=== PATIENT | male | born 1960 | race Caucasian/White ===

== ENCOUNTER 2023-10-27 13:30 | Outpatient (AMB) | payer OTHER, SELFPAY ==
--- NOTE | 2023-10-27 13:35 | A.OFFPC_ITS ---
Vital Signs 10/27/23 13:36 10/27/23 14:12 Height 5 ft 6.93 in Weight 204 lb 0.4 oz BMI 32.0 BP 142/90 H 138/70 Blood Pressure Location Lt brachial Lt brachial Position Sitting Sitting Pulse 94 Pulse Source Pulse Oximeter Pulse Oximetry (%) 98 Oxygen Delivery Method Room Air Intake Visit Reasons: [employer]- Establish Care Intake Note: Patient is a new patient here to establish care [employer] Supervisor Required: No Allergies No Known Allergies Allergy (Verified 10/27/23 13:36) Medication List - Last Reconciled 10/27/23 by Allyn Pierre MD cholecalciferol (vitamin D3) 50 mcg PO DAILY lisinopril 5 mg PO DAILY metformin ER 500 mg PO DAILY multivitamin 1 tab PO DAILY turmeric mg PO Tobacco use date assessed: 10/27/23 Fall risk assessment: No Falls in past year Last assessed Fall Risk: 10/27/23 Dental Screening Dental Screen Date: 10/27/23 Did you have a dental visit in the last 12 months?: Yes Did you have a dental problem in the last 6 months where you did not have access to dental care?: No Was dental information given to patient?: Patient has dentist HPI [employer]- Establish Care HPI Details 63-year-old obese male with hypertension and chronic kidney disease and diabetes mellitus controlled. This is the 1st time I am seeing the patient [facility] Medical History (Updated 10/27/23 @ 14:09 by Allyn Pierre MD) Impaired glucose tolerance Surgical History (Updated 10/22/23 @ 20:45 by Allyn Pierre MD) Hx of tonsillectomy Family History (Updated 10/27/23 @ 14:25 by Allyn Pierre MD) Maternal Grandfather Heart attack Maternal Uncle Heart attack Social History (Updated 10/27/23 @ 14:25 by Allyn Pierre MD) Housing: House Alcohol intake: current Comment: once a week 3 drink Patient Tobacco Use Status: Never used Tobacco service: No Current occupational status: employed Cognitive needs: No Hearing needs: No Vision needs: No Questionnaire PHQ-9 Over the last 2 weeks, how often have you been bothered by any of the following problems? 1. Little interest or pleasure in doing things: not at all 2. Feeling down, depressed, or hopeless: not at all 3. Trouble falling or staying asleep, or sleeping too much: not at all 4. Feeling tired or having little energy: not at all 5. Poor appetite or overeating: not at all 6. Feeling bad about yourself - or that you are a failure or have let yourself or your family down: not at all 7. Trouble concentrating on things, such as reading the newspaper or watching television: not at all 8. Moving or speaking so slowly that other people could have noticed. Or the opposite - being so fidgety or restless that you have been moving around a lot more than usual: not at all 9. Thoughts that you would be better off or of hurting yourself in some way: not at all Total score: 0 Depression Screening Interpretation: Negative Depression Screening Done: Yes Source: Developed by Drs. Fredrick Barlow, Ale Trammell, Tyler Mancilla and colleagues, with an educational devorah from [employer]. Thrive Questionnaire Date Thrive assessed: 10/27/23 I am a: Patient What is your living situation today?: I have a steady place to live Within the past 12 months, did the food you bought not last and you didn't have the money to get more?: Never true Within the past 12 months, did you worry whether your food would run out before you got money to buy more?: Never true Do you have trouble paying for medicines?: No Do you have trouble getting transportation to medical appointments?: No Do you have trouble paying your heating and electricity bill?: No Do you have trouble taking care of your child, family member or friend?: No Do you have trouble with day-to-day activities such as bathing, preparing meals, shopping, managing finances, etc.?: No Are you currently unemployed and looking for a job?: No Are you interested in more education?: No Please select the resources that you would like help with: None Currently or been in a relationship where the following occur: no concerns reported THRIVE Score: 0 AUDIT C Alcohol Use Questionnaire (AUDIT-C) 1. How often do you have a drink containing alcohol?: Monthly or less 2. How many drinks containing alcohol do you have on a typical day when you are drinking?: 1 or 2 3. How often do you have six or more drinks on one occasion?: Never Total Score: 1 GABE-7 AMB Questionnaire GABE-7 Date GABE - 7 assessed: 10/27/23 Feeling nervous, anxious, or on edge: 0 = Not at all Not being able to stop or control worryin = Not at all Worrying too much about different things: 0 = Not at all Trouble relaxin = Not at all Being so restless that it is hard to sit still: 0 = Not at all Becoming easily annoyed or irritable: 0 = Not at all Feeling afraid as if something awful might happen: 0 = Not at all Total GABE-7 score (0-4 normal; 5-9 mild; 10-14 moderate; 15-21 severe): 0 Source: Developed by Drs. Fredrick Barlow, Ale Trammell, Tyler Mancilla and colleagues, with an educational devorah from [employer]. Physical exam (Primary Care) Vital Signs: Last Vital Signs Pulse 94 10/27/23 13:36 BP 142/90 H 10/27/23 13:36 Pulse Ox 98 10/27/23 13:36 Oxygen Delivery Method Room Air 10/27/23 13:36 BMI result Body Mass Index 32.0 Tobacco/Smoking Status: Tobacco use Status Tobacco use date assessed 10/27/23 10/27/23 13:45 Patient Tobacco Use Status Never used Tobacco 10/27/23 13:45 PHQ-9: PHQ-9 Score PHQ-9: Total score 0 10/27/23 13:54 Depression Screening Interpretation: Negative Thrive Assessment: Date of Thrive Assessment Date Thrive assessed 10/27/23 10/27/23 13:45 Currently or been in a relationship where the following occur: no concerns reported Const General: alert; No acute distress Eyes Conjunctivae: conjunctivae normal Resp Auscultation: clear to auscultation bilaterally Cardio Rate: regular rate Rhythm: regular rhythm GI Inspection: Yes normal to inspection Extrem General: Yes normal to inspection and No edema Results AMB Hemoglobin A1c AMB Hemoglobin A1c 6.3 % Last Edit by PRAVEENA Mcdonough on 10/27/23 13:54 Results Reviewed Results Reviewed: Laboratory Last Values Hgb A1c (Clinic) 6.3 % (4.0-6.0) H 10/27/23 13:47 Assessment and Plan Assessment & Plan (1) Type 2 diabetes mellitus with hyperglycemia: Code(s): E11.65 - Type 2 diabetes mellitus with hyperglycemia Plan: Decrease the amount of carbohydrate intake, pasta, bread, rice and potatoes are all sugar and that is aside from all the sweet stuff, remember that fruits are good but they are Sweet also. Hemoglobin A1c goal of less than 6.5. On metformin 500 mg once a day (2) Chronic kidney disease: Code(s): N18.9 - Chronic kidney disease, unspecified Plan: Keep well hydrated avoid NSAIDs (3) Hypertension: Comment: Hypertension hypercholesterolemia impaired glucose tolerance diverticulosis chronic kidney disease stage 2 flu vaccine April 2023 COVID-19 vaccine 50 04/04/2023 DTaP December 2023 pneumococcal vaccine January 2024 colon cancer screening colonoscopy August 2011 , tonsillectomy 4 years old Code(s): I10 - Essential (primary) hypertension Plan: Continue with blood pressure medication. Decrease salt intake and exercise presently on lisinopril 5 mg once a day (4) Obesity (BMI 30.0-34.9): Code(s): E66.9 - Obesity, unspecified Plan: Diet and exercise (5) Hypercholesterolemia: Code(s): E78.00 - Pure hypercholesterolemia, unspecified Plan: Avoid fried foods, chicken skin, eggs, butter margarine, pastries and meat. Be it pork or beef they have a lot of cholesterol LDL goal of less than 100 and triglyceride of less than 150 Orders: Orders Complete Blood Count Auto Diff Today E11.65 - Type 2 diabetes mellitus with hyperglycemia Creatinine Urine Today E11.65 - Type 2 diabetes mellitus with hyperglycemia UA CC w/rflx Micro + Cult Today E11.65 - Type 2 diabetes mellitus with hyperglycemia, R30.0 - Dysuria Prostate Specific Antigen Scr Today E11.65 - Type 2 diabetes mellitus with hyperglycemia AMB Hemoglobin A1c Today Z13.9 - Encounter for screening, unspecified Comprehensive Met. Panel Today E11.65 - Type 2 diabetes mellitus with hyperglycemia Lipid Panel Today E11.65 - Type 2 diabetes mellitus with hyperglycemia, E78.00 - Pure hypercholesterolemia, unspecified Thyroid Stimulating Hormone Today E11.65 - Type 2 diabetes mellitus with hyperglycemia Free T4 (Free Thyroxine) Today E11.65 - Type 2 diabetes mellitus with hyperglycemia Microalbumin, Random (w Creat) Today E11.65 - Type 2 diabetes mellitus with hyperglycemia Vitamin B12 and Folate Today E11.65 - Type 2 diabetes mellitus with hyperglycemia Coding Level of Care Code Est Pt Level 4 (85274) Diagnoses Type 2 diabetes mellitus with hyperglycemia E11.65 Chronic kidney disease N18.9 Hypertension I10 Obesity (BMI 30.0-34.9) E66.9 Hypercholesterolemia E78.00
[2023-10-27 13:36] VITALS: BP 142/90; PULSE 94; O2SAT 98; BMI 32.0
[2023-10-27 14:12] VITALS: BP 138/70
== END 2023-10-27 14:49 | disposition home or self-care (01) ==
PROVIDERS: PCP Internal Medicine; Visit Provider Internal Medicine
DX: E11.65 Type 2 diabetes mellitus with hyperglycemia (principal); I12.9 Hypertensive chronic kidney disease with stage 1 through stage 4 chronic kidney disease, or unspecified chronic kidney disease; E66.9 Obesity, unspecified; N18.9 Chronic kidney disease, unspecified; Z68.32 Body mass index [BMI] 32.0-32.9, adult; E78.00 Pure hypercholesterolemia, unspecified
CPT/HCPCS: 83036; 99214

== ENCOUNTER 2023-10-27 14:55 | Outpatient (REF) | payer OTHER, SELFPAY ==
[2023-10-27 15:11] LABS: MANUAL DIFF FLAG NO
[2023-10-27 15:29] LABS: Basophils Percent Auto 0.4 % (0-2); Eosinophils Percent Auto 0.4 % (0-4); Hematocrit 47.1 % (42.0-52.0); Hemoglobin 16.1 g/dl (14.0-18.0); Imm Gran Abs Auto 0.04 X10*3/uL (0.00-0.03); Imm Gran Pct Auto 0.5 % (0.0-0.4); Lymphocytes Absolute Auto 1.9 X10*3/uL (1.2-4.9); Lymphocytes Percent Auto 24.4 % (20-40); Mean Corpuscular HGB Conc 34.2 g/dl (31.0-36.0); Mean Corpuscular Hemoglobin 28.6 pg (27.0-33.0); Mean Corpuscular Volume 83.7 fL (80.0-98.0); Mean Platelet Volume 8.6 fL (9.4-12.4); Monocytes Absolute Auto 0.4 X10*3/uL (0.1-1.2); Monocytes Percent Auto 5.4 % (2-11); Neutrophils Absolute Auto 5.3 x10*3/uL (2.0-8.3); Neutrophils Percent Auto 68.9 % (45-73); Platelet Count 259 X10*3/uL (160-400); Red Blood Count 5.63 X10*6/uL (4.60-5.80); Red Cell Distribution Width 13.1 % (11.0-16.0); White Blood Count 7.8 X10*3/uL (4.8-10.8)
[2023-10-27 15:32] LABS: Appearance Urine Clear; Color Urine Yellow; Glucose Urine UA Negative (Negative); Leukocyte Esterase Urine Negative (Negative); Nitrite Urine Negative (Negative); Specific Gravity - Urine 1.025 (1.005-1.025); Urine Blood Negative (Negative); Urine Ketones Negative (Negative); Urine Protein Negative (Neg-Trace)
[2023-10-27 16:03] LABS: Alanine Aminotransferase 23 U/L (0-40); Albumin Level 4.7 g/dL (3.5-5.0); Alkaline Phosphatase 68 U/L (39-117); Anion Gap 16 (12-20); Aspartate Amino Transferase 21 U/L (5-37); Bilirubin Total 0.4 mg/dL (0.0-1.0); Blood Urea Nitrogen 14 mg/dL (9-16); Calcium 9.7 mg/dL (8.4-10.2); Carbon Dioxide 27 mmol/L (22-29); Chloride 105 mmol/L (96-108); Cholesterol 217 mg/dL (<200); Estimated Glomerular Filt Rate > 60; Glucose Random 119 mg/dL (60-115); HDL Cholesterol 44 mg/dL (>40); LDL Cholesterol Calculated 129 mg/dL (<100); Potassium 4.8 mmol/L (3.3-5.1); Sodium 143 mmol/L (135-145); Total Protein 7.4 g/dL (6.5-8.0); Triglycerides 224 mg/dL (<150)
[2023-10-27 16:11] LABS: Free T4 (Free Thyroxine) 0.99 ng/dL (0.71-1.85); Thyroid Stimulating Hormone 0.84 uIU/mL (0.32-4.0)
[2023-10-27 16:26] LABS: Folate 14.5 ng/mL (> or = 4.0); Prostate Specific Antigen Scr 2.08 ng/mL (<0.05-4.0); Vitamin B12 943 pg/mL (200-900)
[2023-10-27 17:01] LABS: Creatinine Urine 242.25 mg/dL; Microalbum/Creatinine Ratio Ur 5.7 ug/mg cr (<30)
== END 2023-10-27 14:56 | disposition home or self-care (01) ==
LOC: HO.LAB 14:55
PROVIDERS: PCP Internal Medicine; Visit Provider Internal Medicine
DX: Z12.5 Encounter for screening for malignant neoplasm of prostate (principal); E11.65 Type 2 diabetes mellitus with hyperglycemia; E78.00 Pure hypercholesterolemia, unspecified; R30.0 Dysuria
CPT/HCPCS: 36415; 80053; 80061; 81003; 82043; 82570; 82607; 82746; 84153; 84439; 84443; 85025

== ENCOUNTER 2024-02-27 12:15 | Outpatient (AMB) | payer OTHER, SELFPAY ==
--- NOTE | 2024-02-27 12:35 | MHC.PC.OV ---
Vital Signs 02/27/24 12:37 Height 5 ft 6 in Weight 207 lb BMI 33.4 BP 138/74 Blood Pressure Location Lt brachial Position Sitting Pulse 67 Pulse Source Pulse Oximeter Pulse Oximetry (%) 98 Oxygen Delivery Method Room Air Intake Visit Reasons: Annual Exam [employer] Required: No Allergies No Known Allergies Allergy (Verified 10/27/23 13:36) Medication List - Last Reconciled 02/27/24 by Allyn Pierre MD cholecalciferol (vitamin D3) 50 mcg PO DAILY lisinopril 5 mg PO DAILY metformin ER 500 mg PO DAILY multivitamin 1 tab PO DAILY turmeric mg PO Tobacco use date assessed: 02/27/24 Fall risk assessment: No Falls in past year Last assessed Fall Risk: 02/27/24 Dental Screening Dental Screen Date: 02/27/24 Did you have a dental visit in the last 12 months?: Yes Did you have a dental problem in the last 6 months where you did not have access to dental care?: No Was dental information given to patient?: Patient has dentist HPI Annual Exam HPI Details 64-year-old obese male with controlled diabetes mellitus chronic kidney disease hypertension hypercholesterolemia coming in for physical exam. Last seen in 10/22/2023. Up-to-date with colonoscopy. recently while playing gold- 1 month ago. ASCVD Risk 10 year 33.% PFSH Medical History (Updated 02/27/24 @ 12:59 by Allyn Pierre MD) Impaired glucose tolerance Surgical History (Updated 10/22/23 @ 20:45 by Allyn Pierre MD) Hx of tonsillectomy Family History (Updated 10/27/23 @ 14:25 by Allyn Pierre MD) Maternal Grandfather Heart attack Maternal Uncle Heart attack Social History (Updated 10/27/23 @ 14:25 by Allyn Pierre MD) Housing: House Alcohol intake: current Comment: once a week 3 drink Patient Tobacco Use Status: Never used Tobacco service: No Current occupational status: employed Cognitive needs: No Hearing needs: No Vision needs: No Questionnaire PHQ-9 Over the last 2 weeks, how often have you been bothered by any of the following problems? 1. Little interest or pleasure in doing things: not at all 2. Feeling down, depressed, or hopeless: not at all 3. Trouble falling or staying asleep, or sleeping too much: not at all 4. Feeling tired or having little energy: not at all 5. Poor appetite or overeating: not at all 6. Feeling bad about yourself - or that you are a failure or have let yourself or your family down: not at all 7. Trouble concentrating on things, such as reading the newspaper or watching television: not at all 8. Moving or speaking so slowly that other people could have noticed. Or the opposite - being so fidgety or restless that you have been moving around a lot more than usual: not at all 9. Thoughts that you would be better off or of hurting yourself in some way: not at all Total score: 0 Depression Screening Interpretation: Negative Depression Screening Done: Yes Source: Developed by Drs. Fredrick Barlow, Ale Trammell, Tyler Mancilla and colleagues, with an educational devorah from [employer]. Thrive Questionnaire Date Thrive assessed: 10/27/23 I am a: Patient What is your living situation today?: I have a steady place to live Within the past 12 months, did the food you bought not last and you didn't have the money to get more?: Never true Within the past 12 months, did you worry whether your food would run out before you got money to buy more?: Never true Do you have trouble paying for medicines?: No Do you have trouble getting transportation to medical appointments?: No Do you have trouble paying your heating and electricity bill?: No Do you have trouble taking care of your child, family member or friend?: No Do you have trouble with day-to-day activities such as bathing, preparing meals, shopping, managing finances, etc.?: No Are you currently unemployed and looking for a job?: No Are you interested in more education?: No Please select the resources that you would like help with: None THRIVE Score: 0 AUDIT C Alcohol Use Questionnaire (AUDIT-C) 1. How often do you have a drink containing alcohol?: Monthly or less 2. How many drinks containing alcohol do you have on a typical day when you are drinking?: 1 or 2 3. How often do you have six or more drinks on one occasion?: Never Total Score: 1 GABE-7 AMB Questionnaire GABE-7 Date GABE - 7 assessed: 10/27/23 Feeling nervous, anxious, or on edge: 0 = Not at all Not being able to stop or control worryin = Not at all Worrying too much about different things: 0 = Not at all Trouble relaxin = Not at all Being so restless that it is hard to sit still: 0 = Not at all Becoming easily annoyed or irritable: 0 = Not at all Feeling afraid as if something awful might happen: 0 = Not at all Total GABE-7 score (0-4 normal; 5-9 mild; 10-14 moderate; 15-21 severe): 0 Source: Developed by Drs. Fredrick Barlow, Ale Trammell, Tyler Mancilla and colleagues, with an educational devorah from [employer]. Review of Systems Const Denies poor appetite and Denies weakness Eyes Denies no additional complaints ENT Reports Normal hearing present, Denies dizziness, Denies nasal congestion, Denies tinnitus and Denies sore throat Card Denies chest pain, Denies syncope, Denies rapid heart rate and Denies dyspnea Resp Denies cough and Denies dyspnea GI Denies change in stool character, Reports constipation, Denies diarrhea, Denies nausea and Denies vomiting Denies dysuria and Denies urinary frequency Neuro Reports Normal hearing present, Denies confusion, Denies dizziness, Denies syncope and Denies weakness Psych Denies confusion Physical exam (Primary Care) Vital Signs: Last Vital Signs Pulse 67 02/27/24 12:37 BP 138/74 02/27/24 12:37 Pulse Ox 98 02/27/24 12:37 Oxygen Delivery Method Room Air 02/27/24 12:37 BMI result Body Mass Index 33.4 Tobacco/Smoking Status: Tobacco use Status Tobacco use date assessed 02/27/24 02/27/24 12:42 Patient Tobacco Use Status Never used Tobacco 02/27/24 12:42 PHQ-9: PHQ-9 Score PHQ-9: Total score 0 02/27/24 12:48 Depression Screening Interpretation: Negative Thrive Assessment: Date of Thrive Assessment Date Thrive assessed 10/27/23 02/27/24 12:42 Const General: No confusion Orientation/consciousness: No confusion HENMT Head: Yes normocephalic Ears: external ears normal and TM's normal bilaterally Face and sinus: Yes normal facial exam Mouth: moist mucous membranes Throat: Yes tonsils normal Eyes Conjunctivae: conjunctivae normal Pupils: Equal, round and reactive pupils present and Pupil accommodation reflex normal Direct Ophthalmoscopy: normal light reflex Neck Neck: No lymphadenopathy Thyroid: Thyroid normal Chest Chest palpation & inspection: normal inspection of the chest Resp Effort & Inspection: normal respiratory effort and no audible wheezes Auscultation: clear to auscultation bilaterally, no crackles, no wheezes and lung sounds not diminished Cardio Rate: regular rate Rhythm: regular rhythm Peripheral pulses: radial pulses present and dorsalis pedis present GI Other: guaiac neg, prostate N, pin prick and pedal pulses N Palpation (GI): no masses Auscultation: normal bowel sounds and normoactive bowel sounds Male General Exam: Yes normal external exam Skin General skin exam: no rashes or lesions noted Rashes: no rashes Neuro General: No confusion Cranial nerves: Yes Equal, round and reactive pupils present and Yes Normal hearing present Cognition (Neuro): normal cognition Gait exam (Neuro): Normal gait present Motor exam (neuro): 5/5 motor strength present throughout Deep tendon reflexes (DTR's): Right brachioradialis reflex intensity grade: 2+, Left brachioradialis reflex intensity grade: 2+, Right patellar reflex intensity grade: 2+ and Left patellar reflex intensity grade: 2+ Extrem General: No edema Results AMB Hemoglobin A1c AMB Hemoglobin A1c 6.3 % Last Edit by PRAVEENA Mcdonough on 02/27/24 12:45 Immunizations pneumoc 20-sweta conj-dip cr(PF) 0.5 mL IM syringe Performing Provider: Allyn Pierre MD Performing Location: [facility] Administered by: PRAVEENA Heck on 02/27/24 13:23 Dose Route Admin Location Dispensed Lot Number Expiration Date NDC Passenger Service Representative 0.5 mL IM Right Deltoid 0.5 mL [id number] 04/02/25 [id number] [employer] VIS Given Date VIS Provided VIS Publication Date 02/27/24 Single Vaccine 21 Eligibility Eligibility Date Funding Source Not VFC Eligible 02/27/24 Private Results Reviewed Results Reviewed: Laboratory Last Values Hgb A1c (Clinic) 6.3 % (4.0-6.0) H 02/27/24 11:41 Assessment and Plan Assessment & Plan (1) Annual physical exam: Code(s): Z00.00 - Encounter for general adult medical examination without abnormal findings Plan: Patient is advised to eat healthy, keep well hydrated, keep active and have adequate sleep. (2) Type 2 diabetes mellitus with hyperglycemia: Comment: damaris Mims 2023 Code(s): E11.65 - Type 2 diabetes mellitus with hyperglycemia Plan: Decrease the amount of carbohydrate intake, pasta, bread, rice and potatoes are all sugar and that is aside from all the sweet stuff, remember that fruits are good but they are Sweet also. Hemoglobin A1c goal of less than 6.5. (3) Obesity (BMI 30.0-34.9): Code(s): E66.9 - Obesity, unspecified Plan: Diet and exercise (4) Hypertension: Comment: Hypertension hypercholesterolemia impaired glucose tolerance diverticulosis chronic kidney disease stage 2 flu vaccine April 2023 COVID-19 vaccine 50 04/04/2023 DTaP December 2023 pneumococcal vaccine January 2024 colon cancer screening colonoscopy August 2011 , tonsillectomy 4 years old Code(s): I10 - Essential (primary) hypertension Plan: Continue with blood pressure medication. Decrease salt intake and exercise on lisinopril 5 mg once a day (5) Hypercholesterolemia: Code(s): E78.00 - Pure hypercholesterolemia, unspecified Plan: Avoid fried foods, chicken skin, eggs, butter margarine, pastries and meat. Be it pork or beef they have a lot of cholesterol LDL goal of less than 100 and triglyceride of less than 150.opted to retest 3 months (6) Chronic kidney disease: Code(s): N18.9 - Chronic kidney disease, unspecified Plan: Keep well hydrated avoid NSAIDs. blood work and urine test Normal (7) Tinnitus: Code(s): H93.19 - Tinnitus, unspecified ear Orders: Orders Hemoglobin A1c 3 Months E11.65 - Type 2 diabetes mellitus with hyperglycemia Pneumococcal 20 Immunization Today Z23 - Encounter for immunization AMB Hemoglobin A1c Today E11.65 - Type 2 diabetes mellitus with hyperglycemia Comprehensive Met. Panel 3 Months E11.65 - Type 2 diabetes mellitus with hyperglycemia Lipid Panel 3 Months E78.00 - Pure hypercholesterolemia, unspecified Referrals Speech and Hearing Referral H93.19 - Tinnitus, unspecified ear Medications: New pneumoc 20-sweta conj-dip cr(PF) 0.5 mL IM ONCE 0.5 mL 0RF Z23 - Encounter for immunization Coding Level of Care Code Est Pt Prev Care >65y(18273) Diagnoses Annual physical exam Z00.00 Type 2 diabetes mellitus with hyperglycemia E11.65 Obesity (BMI 30.0-34.9) E66.9 Hypertension I10 Hypercholesterolemia E78.00 Chronic kidney disease N18.9 Tinnitus H93.19
[2024-02-27 12:37] VITALS: BP 138/74; PULSE 67; O2SAT 98; BMI 33.4
== END 2024-02-27 13:27 | disposition home or self-care (01) ==
PROVIDERS: PCP Internal Medicine; Visit Provider Internal Medicine
DX: Z00.00 Encounter for general adult medical examination without abnormal findings (principal); I12.9 Hypertensive chronic kidney disease with stage 1 through stage 4 chronic kidney disease, or unspecified chronic kidney disease; N18.9 Chronic kidney disease, unspecified; Z23 Encounter for immunization; E11.65 Type 2 diabetes mellitus with hyperglycemia; E66.9 Obesity, unspecified; E78.00 Pure hypercholesterolemia, unspecified; Z68.33 Body mass index [BMI] 33.0-33.9, adult
CPT/HCPCS: 83036; 90471; 90677; 99397

== ENCOUNTER 2024-03-08 13:28 | Outpatient (REF) | payer OTHER, SELFPAY | END 2024-03-08 13:29 | disposition home or self-care (01) | LOC: HO.SH 13:28 | PROVIDERS: Visit Provider Internal Medicine | DX: Z01.118 Encounter for examination of ears and hearing with other abnormal findings (principal); H90.3 Sensorineural hearing loss, bilateral | CPT/HCPCS: 92557; 92567 ==

== ENCOUNTER 2024-07-05 07:37 | Outpatient (REF) | payer OTHER, SELFPAY ==
[2024-07-05 11:33] LABS: Estimated Average Glucose 137 mg/dL; Hemoglobin A1C 177.2647 umol/L; Hemoglobin A1c % 6.4 % (<6.0); Total Hemoglobin (HGBA1C) 3847.3439 umol/L
[2024-07-05 12:00] LABS: Alanine Aminotransferase 25 U/L (0-40); Albumin Level 4.3 g/dL (3.5-5.0); Alkaline Phosphatase 61 U/L (39-117); Anion Gap 10 (12-20); Aspartate Amino Transferase 28 U/L (5-37); Bilirubin Total 0.4 mg/dL (0.0-1.0); Blood Urea Nitrogen 16 mg/dL (9-16); Calcium 9.6 mg/dL (8.4-10.2); Carbon Dioxide 29 mmol/L (22-29); Chloride 107 mmol/L (96-108); Cholesterol 196 mg/dL (<200); Estimated Glomerular Filt Rate > 60; Glucose Random 128 mg/dL (60-115); HDL Cholesterol 37 mg/dL (>40); LDL Cholesterol Calculated 109 mg/dL (<100); Potassium 4.3 mmol/L (3.3-5.1); Sodium 142 mmol/L (135-145); Total Protein 6.9 g/dL (6.5-8.0); Triglycerides 252 mg/dL (<150)
== END 2024-07-05 07:38 | disposition home or self-care (01) ==
LOC: HO.WFDLDS 07:37
PROVIDERS: Visit Provider Internal Medicine
DX: E11.65 Type 2 diabetes mellitus with hyperglycemia (principal); E78.00 Pure hypercholesterolemia, unspecified
CPT/HCPCS: 36415; 80053; 80061; 82570; 83036

== ENCOUNTER 2024-07-09 09:45 | Outpatient (AMB) | payer OTHER, SELFPAY ==
[2024-07-09 09:51] VITALS: BP 132/68; PULSE 82; O2SAT 97; BMI 34.1
--- NOTE | 2024-07-09 09:51 | A.OFFPC_ITS ---
Vital Signs 07/09/24 09:51 Height 5 ft 6 in Weight 211 lb BMI 34.1 BP 132/68 Blood Pressure Location Lt brachial Position Sitting Pulse 82 Pulse Source Pulse Oximeter Pulse Oximetry (%) 97 Oxygen Delivery Method Room Air Intake Visit Reasons: DM , Cholesterol Allergies No Known Allergies Allergy (Verified 07/09/24 09:51) Tobacco use date assessed: 07/09/24 Fall risk assessment: No Falls in past year Last assessed Fall Risk: 07/09/24 Dental Screening Dental Screen Date: 07/09/24 Did you have a dental visit in the last 12 months?: Yes Did you have a dental problem in the last 6 months where you did not have access to dental care?: No Was dental information given to patient?: Patient has dentist HPI DM , Cholesterol HPI Details The patient is a 64-year-old male presenting with a follow-up visit for chronic condition management. He has a longstanding history of obesity, type 2 diabetes mellitus, essential hypertension, hypercholesterolemia, and chronic kidney disease. His diabetes is being managed with metformin, with recent bloodwork showing a fasting glucose of 128 mg/dL and a hemoglobin A1c of 6.4%, indicating reasonable glycemic control. The patient's hypertension is controlled with lisinopril, and recent blood pressure readings have been satisfactory. However, lipid panel results reveal elevated LDL cholesterol at 109 mg/dL and triglycerides at 252 mg/dL, both above target levels. The patient was diagnosed with posterior vitreous detachment in the left eye at the [facility], which is being monitored. Additionally, he has been observed to have senile nuclear cataracts in both eyes, which are not currently severe enough to require intervention. He underwent a hearing test which revealed moderate sensorineural hearing loss bilaterally. - Colonoscopy up to date as of April 2023. - Comprehensive eye exam done on 2023, at the [facility]. - Flu shot received in April. - Up-to-date with pneumonia vaccinations . - Tetanus shot administered today. - Advised on dietary modifications to ma nage triglyceride levels. - Encouraged regular exercise to aid tom ght management and improve overall health. - Advised to moderate use of nonsteroida l anti-inflammatory drugs (NSAIDs) due to potential kidney impact. - Employment: Works in technology. - Exercise: Primarily walking; acknowled ged the need to increase activity. - Current nutritional habits: Under advi ce for dietary modifications due to high triglycerides. - Substance use: Denied excessive use of NSAIDs but uses occasionally. - Ophthalmologic: Reports floaters; win es other vision changes. - Auditory: Reports ringing in the ears. - No other issues reported. [facility] Medical History (Updated 07/09/24 @ 10:10 by Allyn Pierre MD) Impaired glucose tolerance Surgical History (Updated 10/22/23 @ 20:45 by Allyn Pierre MD) Hx of tonsillectomy Family History (Updated 07/09/24 @ 09:52 by Kell Infante [facility]) Maternal Grandfather Heart attack Maternal Uncle Heart attack Social History (Updated 10/27/23 @ 14:25 by Allyn Pierre MD) Housing: House Alcohol intake: current Comment: once a week 3 drink Patient Tobacco Use Status: Never used Tobacco Tobacco use type: Cigarette e-Cigarette/Vaping Use: Never Used Second Hand Smoke Exposure: No service: No Current occupational status: employed Cognitive needs: No Hearing needs: No Vision needs: Yes Questionnaire PHQ-9 Over the last 2 weeks, how often have you been bothered by any of the following problems? 1. Little interest or pleasure in doing things: not at all 2. Feeling down, depressed, or hopeless: not at all 3. Trouble falling or staying asleep, or sleeping too much: not at all 4. Feeling tired or having little energy: not at all 5. Poor appetite or overeating: not at all 6. Feeling bad about yourself - or that you are a failure or have let yourself or your family down: not at all 7. Trouble concentrating on things, such as reading the newspaper or watching television: not at all 8. Moving or speaking so slowly that other people could have noticed. Or the opposite - being so fidgety or restless that you have been moving around a lot more than usual: not at all 9. Thoughts that you would be better off or of hurting yourself in some way: not at all Total score: 0 Depression Screening Interpretation: Negative Depression Screening Done: Yes Source: Developed by Drs. Fredrick Barlow, Ale Trammell, Tyler Mancilla and colleagues, with an educational devorah from [employer]. Thrive Questionnaire Date Thrive assessed: 10/27/23 AUDIT C Alcohol Use Questionnaire (AUDIT-C) 2. How many drinks containing alcohol do you have on a typical day when you are drinking?: 1 or 2 3. How often do you have six or more drinks on one occasion?: Never Total Score: 0 GABE-7 AMB Questionnaire GABE-7 Date GABE - 7 assessed: 10/27/23 Source: Developed by Drs. Fredrick Barlow, Tyler Wood nd, with an educational devorah from [employer]. Physical exam (Primary Care) Vital Signs: Last Vital Signs Pulse 82 07/09/24 09:51 BP 132/68 07/09/24 09:51 Pulse Ox 97 07/09/24 09:51 Oxygen Delivery Method Room Air 07/09/24 09:51 BMI result Body Mass Index 34.1 Tobacco/Smoking Status: Tobacco use Status Tobacco use date assessed 07/09/24 07/09/24 09:55 Patient Tobacco Use Status Never used Tobacco 07/09/24 09:55 Tobacco use type Cigarette 07/09/24 09:55 e-Cigarette/Vaping Use Never Used 07/09/24 09:55 PHQ-9: PHQ-9 Score PHQ-9: Total score 0 07/09/24 10:10 Depression Screening Interpretation: Negative Thrive Assessment: Date of Thrive Assessment Date Thrive assessed 10/27/23 07/09/24 09:55 Const General: alert; No acute distress Eyes Conjunctivae: conjunctivae normal Resp Auscultation: clear to auscultation bilaterally Cardio Rate: regular rate Rhythm: regular rhythm GI Inspection: Yes normal to inspection Extrem General: Yes normal to inspection and No edema Immunizations tetanus-diphtheria toxoids-Td 2 Lf unit-2 Lf unit/0.5 mL IM suspension Performing Provider: Allyn Pierre MD [facility] Administered by: Kell Infante CMA on 07/09/24 10:28 Dose Route Admin Location Dispensed Lot Number Expiration Date [facility] Environmental Services Attendant 0.5 mL IM Left Deltoid 0.5 mL [id number] 09/13/24 [id number] [employer] VIS Given Date VIS Provided VIS Publication Date 07/09/24 Single Vaccine 21 Eligibility Eligibility Date Funding Source Not C Eligible 07/09/24 [facility] Coding Level of Care Code Est Pt Level 4 (30207) Diagnoses Type 2 diabetes mellitus with hyperglycemia E11.65 Obesity (BMI 30.0-34.9) E66.9 Hypercholesterolemia E78.00 Primary hypertension I10 Hypertension type: primary hypertension Gastroesophageal reflux disease without esophagitis K21.9 Esophagitis presence: without esophagitis Assessment & Plan Assessment & Plan (1) Type 2 diabetes mellitus with hyperglycemia: Comment: ophthal DR. Ruben Mims 2023 Code(s): E11.65 - Type 2 diabetes mellitus with hyperglycemia Category: Medical Plan: Decrease the amount of carbohydrate intake, pasta, bread, rice and potatoes are all sugar and that is aside from all the sweet stuff, remember that fruits are good but they are Sweet also. Hemoglobin A1c goal of less than 6.5. Patient is taking metformin 500 mg once a day (2) Obesity (BMI 30.0-34.9): Code(s): E66.9 - Obesity, unspecified Category: Medical Plan: Diet and exercise (3) Hypercholesterolemia: Code(s): E78.00 - Pure hypercholesterolemia, unspecified Category: Medical Plan: Avoid fried foods, chicken skin, eggs, butter margarine, pastries and meat. Be it pork or beef they have a lot of cholesterol LDL goal of less than 100 and triglyceride of less than 150. (4) Hypertension: Comment: Hypertension hypercholesterolemia impaired glucose tolerance diverticulosis chronic kidney disease stage 2 flu vaccine April 2023 COVID-19 vaccine 50 04/04/2023 DTaP December 2023 pneumococcal vaccine January 2024 colon cancer screening colonoscopy August 2011 , tonsillectomy 4 years old Code(s): I10 - Essential (primary) hypertension Category: Medical Qualifiers: Hypertension type: primary hypertension Qualified Code(s): I10 - Essential (primary) hypertension Plan: Continue with blood pressure medication. Decrease salt intake and exercise on lisinopril 5 mg once a day (5) GERD (gastroesophageal reflux disease): Code(s): K21.9 - Gastro-esophageal reflux disease without esophagitis Category: Medical Qualifiers: Esophagitis presence: without esophagitis Qualified Code(s): K21.9 - Gastro-esophageal reflux disease without esophagitis Plan: Avoid the foods that causes that usually spicy foods, tomato products, juices, coffee, soda and foods that your sensitive to. After eating do not lie down, allow 3-4 hours before in lie down. And keep the head of bed above 30 degrees to avoid the acid from going up. Plan - Labs: Creatinine 1.17 mg/dL; fasting blood glucose 128 mg/dL; hemoglobin A1c 6.4%; total cholesterol 196 mg/dL; HDL 37 mg/dL; LDL 109 mg/dL; triglycerides 252 mg/dL. - For Type 2 Diabetes Mellitus: Continue metformin therapy, monitor blood glucose and A1c. - For Essential Hypertension: Continue lisinopril. - For Hypercholesterolemia: Initiate low-dose statin therapy to lower LDL cholesterol levels. Reassess lipid panel in three months. - For Obesity and High Triglycerides: Recommend dietary modifications and increased physical activity. - For Chronic Kidney Disease: Monitor kidney function; caution with NSAID use. - For Posterior Vitreous Detachment and Cataracts: Observation and routine follow-up with eye specialists. - For Moderate Sensorineural Hearing Loss: Advise follow-up if hearing difficulties increase. I discussed with the patient the importance of maintaining blood sugar control and endorsed the current metformin regimen. We reviewed the current lipid panel results, necessitating a low-dose statin to address the elevated LDL cholesterol. Dietary and activity modifications were advised to manage weight and high triglyceride levels. I reviewed potential side effects of statins, specifically mentioning muscle aches and encouraged monitoring for any adverse effects. We also talked about the relationship between diabetes, kidney function, and the use of NSAIDs. Vaccination status was reviewed, and a tetanus booster was administered. We agreed on a follow-up plan to include a lipid panel in three months and addressed potential challenges in maintaining physical activity during varying temperatures. - Continue current diabetes and hypertension medications as prescribed. - Begin low-dose statin for cholesterol management. - Follow recommended dietary changes to lower triglyceride levels. - Increase physical activity; consider indoor alternatives during extreme temperatures. - Limit use of NSAIDs and take with food when necessary. - Keep up with routine screenings and follow-ups with specialists as scheduled. - Inform me if any side effects from the new medication occur. - Obtain a follow-up blood test in three months. - Schedule next visit for six months, but contact earlier if needed. - Ensure to maintain all vaccinations up to date. Orders: Orders Lipid Panel 3 Months E78.00 - Pure hypercholesterolemia, unspecified Comprehensive Met. Panel 3 Months E78.00 - Pure hypercholesterolemia, unspecified Hemoglobin A1c 3 Months E78.00 - Pure hypercholesterolemia, unspecified Td State Immunization Today Z23 - Encounter for immunization Medications: New rosuvastatin 5 mg PO DAILY 90 tabs 3RF E78.00 - Pure hypercholesterolemia, unspecified
== END 2024-07-09 10:35 | disposition home or self-care (01) ==
PROVIDERS: PCP Internal Medicine; Visit Provider Internal Medicine
DX: E11.65 Type 2 diabetes mellitus with hyperglycemia (principal); E66.9 Obesity, unspecified; Z68.34 Body mass index [BMI] 34.0-34.9, adult; E78.00 Pure hypercholesterolemia, unspecified; I10 Essential (primary) hypertension; K21.9 Gastro-esophageal reflux disease without esophagitis; Z23 Encounter for immunization

== ENCOUNTER → 2024-07-09 09:45 | Outpatient (BNVA) | payer OTHER, SELFPAY | PROVIDERS: PCP Internal Medicine; Visit Provider Internal Medicine | DX: E11.65 Type 2 diabetes mellitus with hyperglycemia (principal); E66.9 Obesity, unspecified; Z68.34 Body mass index [BMI] 34.0-34.9, adult; E78.00 Pure hypercholesterolemia, unspecified; Z23 Encounter for immunization; E11.22 Type 2 diabetes mellitus with diabetic chronic kidney disease; I12.9 Hypertensive chronic kidney disease with stage 1 through stage 4 chronic kidney disease, or unspecified chronic kidney disease; N18.9 Chronic kidney disease, unspecified; K21.9 Gastro-esophageal reflux disease without esophagitis; H25.13 Age-related nuclear cataract, bilateral; H43.819 Vitreous degeneration, unspecified eye; H90.5 Unspecified sensorineural hearing loss; Z79.84 Long term (current) use of oral hypoglycemic drugs; Z79.899 Other long term (current) drug therapy | CPT/HCPCS: 90471; 90714; 96127 ==

== ENCOUNTER 2024-10-22 07:55 | Outpatient (REF) | payer OTHER, SELFPAY ==
[2024-10-22 11:36] LABS: Alanine Aminotransferase 25 U/L (0-40); Albumin Level 4.2 g/dL (3.5-5.0); Alkaline Phosphatase 59 U/L (39-117); Anion Gap 9 (12-20); Aspartate Amino Transferase 21 U/L (5-37); Bilirubin Total 0.3 mg/dL (0.0-1.0); Blood Urea Nitrogen 17 mg/dL (9-16); Calcium 9.1 mg/dL (8.4-10.2); Carbon Dioxide 27 mmol/L (22-29); Chloride 108 mmol/L (96-108); Cholesterol 130 mg/dL (<200); Estimated Glomerular Filt Rate > 60; Glucose Random 134 mg/dL (60-115); HDL Cholesterol 41 mg/dL (>40); LDL Cholesterol Calculated 61 mg/dL (<100); Potassium 4.4 mmol/L (3.3-5.1); Sodium 140 mmol/L (135-145); Triglycerides 144 mg/dL (<150)
[2024-10-22 11:38] LABS: Estimated Average Glucose 140 mg/dL; Hemoglobin A1c % 6.5 % (<6.0); Total Hemoglobin (HGBA1C) 3868.0973 umol/L
== END 2024-10-22 07:56 | disposition home or self-care (01) ==
LOC: HO.WFDLDS 07:55
PROVIDERS: Visit Provider Internal Medicine
DX: E78.00 Pure hypercholesterolemia, unspecified (principal); Z13.1 Encounter for screening for diabetes mellitus
CPT/HCPCS: 36415; 80053; 80061; 83036

== ENCOUNTER 2025-01-05 10:19 | Outpatient (REF) | payer OTHER, SELFPAY ==
[2025-01-05 14:16] LABS: MANUAL DIFF FLAG NO
[2025-01-05 14:22] LABS: Basophils Percent Auto 0.6 % (0-2); Eosinophils Absolute Auto 0.2 X10*3/uL (0.0-0.4); Eosinophils Percent Auto 4.1 % (0-4); Hematocrit 42.6 % (42.0-52.0); Imm Gran Abs Auto 0.01 X10*3/uL (0.00-0.03); Imm Gran Pct Auto 0.2 % (0.0-0.4); Lymphocytes Absolute Auto 1.7 X10*3/uL (1.2-4.9); Lymphocytes Percent Auto 33.9 % (20-40); Mean Corpuscular HGB Conc 32.9 g/dl (31.0-36.0); Mean Corpuscular Hemoglobin 28.3 pg (27.0-33.0); Mean Corpuscular Volume 86.2 fL (80.0-98.0); Mean Platelet Volume 9.5 fL (9.4-12.4); Monocytes Absolute Auto 0.4 X10*3/uL (0.1-1.2); Monocytes Percent Auto 7.8 % (2-11); Neutrophils Absolute Auto 2.7 x10*3/uL (2.0-8.3); Neutrophils Percent Auto 53.4 % (45-73); Platelet Count 205 X10*3/uL (160-400); Red Blood Count 4.94 X10*6/uL (4.60-5.80); White Blood Count 5.1 X10*3/uL (4.8-10.8)
[2025-01-05 14:34] LABS: Estimated Average Glucose 140 mg/dL; Hemoglobin A1C 177.0485 umol/L; Hemoglobin A1c % 6.5 % (<6.0); Total Hemoglobin (HGBA1C) 3741.1756 umol/L
[2025-01-05 14:52] LABS: Creatinine Urine 210.55 mg/dL; Microalbumin Urine < 5.0 mg/L
[2025-01-05 15:09] LABS: Folate 13.7 ng/mL (> or = 4.0); Prostate Specific Antigen Scr 2.08 ng/mL (<0.05-4.0); Vitamin B12 599 pg/mL (200-900)
[2025-01-05 15:18] LABS: Free T4 (Free Thyroxine) 0.88 ng/dL (0.71-1.85); Thyroid Stimulating Hormone 0.68 uIU/mL (0.32-4.0)
[2025-01-05 15:32] LABS: Anion Gap 8 (12-20)
[2025-01-05 15:36] LABS: Alanine Aminotransferase 21 U/L (0-40); Albumin Level 4.2 g/dL (3.5-5.0); Alkaline Phosphatase 53 U/L (39-117); Aspartate Amino Transferase 31 U/L (5-37); Bilirubin Total 0.6 mg/dL (0.0-1.0); Blood Urea Nitrogen 19 mg/dL (9-16); Calcium 8.6 mg/dL (8.4-10.2); Carbon Dioxide 30 mmol/L (22-29); Chloride 109 mmol/L (96-108); Cholesterol 119 mg/dL (<200); Estimated Glomerular Filt Rate > 60; Glucose Random 118 mg/dL (60-115); HDL Cholesterol 35 mg/dL (>40); LDL Cholesterol Calculated 60 mg/dL (<100); Potassium 4.1 mmol/L (3.3-5.1); Sodium 143 mmol/L (135-145); Total Protein 6.3 g/dL (6.5-8.0); Triglycerides 123 mg/dL (<150)
== END 2025-01-05 10:20 | disposition home or self-care (01) ==
LOC: HO.WFDLDS 10:19
PROVIDERS: Visit Provider Internal Medicine
DX: E78.00 Pure hypercholesterolemia, unspecified (principal); E11.65 Type 2 diabetes mellitus with hyperglycemia; Z12.5 Encounter for screening for malignant neoplasm of prostate
CPT/HCPCS: 36415; 80053; 80061; 82570; 82607; 82746; 83036; 84153; 84439; 84443; 85025

== ENCOUNTER 2025-01-11 10:50 | Outpatient (AMB) | payer MEDICARE, SELFPAY ==
[2025-01-11 10:56] VITALS: BP 128/70; PULSE 95; TEMP 36.3; O2SAT 98; BMI 33.3
--- NOTE | 2025-01-11 10:56 | A.OFFPC_ITS ---
Vital Signs 01/11/25 10:56 Height 5 ft 6 in Weight 206 lb 2 oz BMI 33.3 BP 128/70 Blood Pressure Location Lt brachial Position Sitting Pulse 95 Pulse Source Pulse Oximeter Temp 97.3 F Temp Source Temporal Artery Scan Pulse Oximetry (%) 98 Oxygen Delivery Method Room Air Intake Visit Reasons: dm Allergies No Known Allergies Allergy (Verified 01/11/25 10:59) Medication List - Last Reconciled 01/11/25 by Allyn Pierre MD cholecalciferol (vitamin D3) 50 mcg PO DAILY lisinopril 5 mg PO DAILY metformin ER 500 mg PO DAILY multivitamin 1 tab PO DAILY omeprazole 20 mg PO DAILY rosuvastatin 5 mg PO DAILY turmeric mg PO Tobacco use date assessed: 01/11/25 Fall risk assessment: No Falls in past year Last assessed Fall Risk: 01/11/25 Dental Screening Dental Screen Date: 01/11/25 Did you have a dental visit in the last 12 months?: Yes Did you have a dental problem in the last 6 months where you did not have access to dental care?: No Was dental information given to patient?: Patient has dentist [facility] Medical History Impaired glucose tolerance Surgical History Hx of tonsillectomy Family History Maternal Grandfather Heart attack Maternal Uncle Heart attack Social History Housing: House Alcohol intake: current Comment: once a week 3 drink Patient Tobacco Use Status: Never used Tobacco Tobacco use type: Cigarette e-Cigarette/Vaping Use: Never Used Second Hand Smoke Exposure: No service: No Current occupational status: employed Cognitive needs: No Hearing needs: No Vision needs: Yes Questionnaire PHQ-9 Over the last 2 weeks, how often have you been bothered by any of the following problems? 1. Little interest or pleasure in doing things: not at all 2. Feeling down, depressed, or hopeless: not at all 3. Trouble falling or staying asleep, or sleeping too much: not at all 4. Feeling tired or having little energy: not at all 5. Poor appetite or overeating: not at all 6. Feeling bad about yourself - or that you are a failure or have let yourself or your family down: not at all 7. Trouble concentrating on things, such as reading the newspaper or watching television: not at all 8. Moving or speaking so slowly that other people could have noticed. Or the opposite - being so fidgety or restless that you have been moving around a lot more than usual: not at all 9. Thoughts that you would be better off or of hurting yourself in some way: not at all Total score: 0 Source: Developed by Drs. Fredrick Barlow, Ale Tramemll, Tyler Mancilla and colleagues, with an educational devorah from [employer]. Thrive Questionnaire Date Thrive assessed: 01/11/25 I am a: Patient What is your living situation today?: I have a steady place to live Within the past 12 months, did the food you bought not last and you didn't have the money to get more?: Never true Within the past 12 months, did you worry whether your food would run out before you got money to buy more?: Never true Do you have trouble paying for medicines?: No Do you have trouble getting transportation to medical appointments?: No Do you have trouble paying your heating and electricity bill?: No Do you have trouble taking care of your child, family member or friend?: No Do you have trouble with day-to-day activities such as bathing, preparing meals, shopping, managing finances, etc.?: No Are you currently unemployed and looking for a job?: No Are you interested in more education?: No Please select the resources that you would like help with: None Currently or been in a relationship where the following occur: No concerns reported THRIVE Score: 0 AUDIT C Alcohol Use Questionnaire (AUDIT-C) 1. How often do you have a drink containing alcohol?: Monthly or less 2. How many drinks containing alcohol do you have on a typical day when you are drinking?: 1 or 2 3. How often do you have six or more drinks on one occasion?: Never Total Score: 1 GABE-7 AMB Questionnaire GABE-7 Date GABE - 7 assessed: 01/11/25 Feeling nervous, anxious, or on edge: 0 = Not at all Not being able to stop or control worryin = Not at all Worrying too much about different things: 0 = Not at all Trouble relaxin = Not at all Being so restless that it is hard to sit still: 0 = Not at all Becoming easily annoyed or irritable: 0 = Not at all Feeling afraid as if something awful might happen: 0 = Not at all Total GABE-7 score (0-4 normal; 5-9 mild; 10-14 moderate; 15-21 severe): 0 Source: Developed by Drs. Fredrick Barlow, Ale Trammell, Tyler Mancilla and colleagues, with an educational devorah from [employer]. Physical exam (Primary Care) Vital Signs: Last Vital Signs Temp 97.3 F 01/11/25 10:56 Pulse 95 01/11/25 10:56 BP 128/70 01/11/25 10:56 Pulse Ox 98 01/11/25 10:56 Oxygen Delivery Method Room Air 01/11/25 10:56 BMI result Body Mass Index 33.3 Tobacco/Smoking Status: Tobacco use Status Tobacco use date assessed 01/11/25 01/11/25 10:59 Patient Tobacco Use Status Never used Tobacco 01/11/25 10:59 Tobacco use type Cigarette 01/11/25 10:59 e-Cigarette/Vaping Use Never Used 01/11/25 10:59 PHQ-9: PHQ-9 Score PHQ-9: Total score 0 01/11/25 10:59 Thrive Assessment: Date of Thrive Assessment Date Thrive assessed 01/11/25 01/11/25 10:59 Currently or been in a relationship where the following occur: No concerns reported Const General: alert; No acute distress Eyes Conjunctivae: conjunctivae normal Resp Auscultation: clear to auscultation bilaterally Cardio Rate: regular rate Rhythm: regular rhythm GI Inspection: Yes normal to inspection Extrem General: Yes normal to inspection and No edema Coding Level of Care Code Est Pt Level 4 (77856) Complex EM visit Add On G2211 Diagnoses Type 2 diabetes mellitus with hyperglycemia E11.65 Primary hypertension I10 Hypertension type: primary hypertension Hypercholesterolemia E78.00 Gastroesophageal reflux disease without esophagitis K21.9 Esophagitis presence: without esophagitis Chest discomfort R07.89 Assessment & Plan Assessment & Plan (1) Type 2 diabetes mellitus with hyperglycemia: Comment: ophthal DR. Ruben Mims 2023 Code(s): E11.65 - Type 2 diabetes mellitus with hyperglycemia Category: Medical Plan: Decrease the amount of carbohydrate intake, pasta, bread, rice and potatoes are all sugar and that is aside from all the sweet stuff, remember that fruits are good but they are Sweet also. Hemoglobin A1c goal of less than 6.5 on metformin 500 mg once a day (2) Hypertension: Comment: Hypertension hypercholesterolemia impaired glucose tolerance diverticulosis chronic kidney disease stage 2 flu vaccine April 2023 COVID-19 vaccine 50 04/04/2023 DTaP December 2023 pneumococcal vaccine January 2024 colon cancer screening colonoscopy August 2011 , tonsillectomy 4 years old Code(s): I10 - Essential (primary) hypertension Category: Medical Qualifiers: Hypertension type: primary hypertension Qualified Code(s): I10 - Essential (primary) hypertension Plan: Continue with blood pressure medication. Decrease salt intake and exercise on lisinopril 5 mg once a day (3) Hypercholesterolemia: Code(s): E78.00 - Pure hypercholesterolemia, unspecified Category: Medical Plan: Avoid fried foods, chicken skin, eggs, butter margarine, pastries and meat. Be it pork or beef they have a lot of cholesterol LDL goal of less than 100 and triglyceride of less than 150 on rosuvastatin 5 mg once a day (4) GERD (gastroesophageal reflux disease): Code(s): K21.9 - Gastro-esophageal reflux disease without esophagitis Category: Medical Qualifiers: Esophagitis presence: without esophagitis Qualified Code(s): K21.9 - Gastro-esophageal reflux disease without esophagitis Plan: Avoid the foods that causes that usually spicy foods, tomato products, juices, coffee, soda and foods that your sensitive to. After eating do not lie down, allow 3-4 hours before in lie down. And keep the head of bed above 30 degrees to avoid the acid from going up. (5) Chest discomfort: Code(s): R07.89 - Other chest pain Category: Medical Plan History of Present Illness The patient is a 64-year-old male presenting with gastrointestinal discomfort and existing chronic conditions. He began experiencing a sensation of hardness in the chest about a month ago, which causes occasional hiccups. He perceives it as a gas-related issue and notes it does not involve pain nor typical heartburn symptoms. The patient has a stable Type 2 Diabetes Mellitus, currently treated with metformin, and a hemoglobin A1c of 6.5. Recent blood tests were within normal limits for renal function and his LDL cholesterol is 60. He denies recent changes in his chronic medication regimen and gastrointestinal symptoms like irregular bowel movements or nausea. His weight has decreased slightly, despite following a stable medication regimen. No evident changes have been noted in his diabetes management or gastrointestinal complaints since their onset. Health Maintenance - Recent blood work done in January: Normal blood count, normal electrolytes, stable creatinine at 1.11, blood sugar 118 - LDL cholesterol at 60, A1c at 6.5 - PSA at 12 - B12, folic acid, thyroid within normal limits - Colonoscopy done in April 2023 - Recommendation to start Prilosec for one month for gastrointestinal discomfort - Follow-up appointment planned after transition to Medicare Advantage Social History - Recently retired and on Medicare - Engages in recreational activities such as golfing - Transitioned to Medicare Advantage coverage Review of Systems - Gastrointestinal: Reports sensation of hardness in chest and occasional hiccups; denies nausea, significant pain, or change in bowel habits - Cardiovascular: Denies chest pain or palpitations - Pulmonary: Denies significant cough - General: Reports weight loss of 5 pounds Physical Exam - General- No acute distress noted - Cardiovascular- No abnormal findings - Gastrointestinal- No reported discomfort on examination - Extremities- No edema; inspection for tick after golfing Results - Labs: Hemoglobin A1c 6.5, LDL 60, creatinine 1.11, PSA 12 - Procedures: Last colonoscopy in April 2023 Plan I have advised starting Prilosec daily for one month for gastrointestinal symptoms. An EKG and chest X-ray have been ordered to further evaluate the region of discomfort. The patient's diabetes remains controlled, and no immediate medication changes are required. After switching to Medicare Advantage, further evaluations and baseline EKG will be conducted. I stressed the importance of dietary adjustments to decrease gas production. Follow up for routine health checks, including diabetes management, will ensure continued control. Patient was informed and verbally consented to the use of an ambient scribe for clinic note documentation during this visit. Discussion Notes We discussed the likely diagnosis of the patient's gastrointestinal discomfort potentially being gas-related rather than a cardiac or acid reflux issue. The distinction was made based on the lack of pain typical for cardiac issues and the absence of burning sensation of reflux. Initiating Prilosec was discussed as a preliminary treatment to manage the reported symptoms. I informed him about performing a chest X-ray and EKG as a precautionary step to rule out cardiac involvement. Follow-up and re-evaluation were recommended post-Medicare Advantage activation to ascertain symptom resolution. We reviewed his recent weight loss and confirmed it was likely benign given his current health status and medication routine. Vaccine update reminders were given, focusing on the shingles vaccine, which he plans to receive. Patient Instructions - Take [id number] Prilosec once daily for one month. - Monitor for changes in the gastrointestinal symptoms. - Report any new or worsening symptoms immediately. - Continue following prescribed medication regimens for diabetes and hypertension. - Follow-up for further evaluations after February 01 under new Medicare Advantage plan. - Avoid gas-producing foods, carbonated drinks, and stay well-hydrated. - Ensure all vaccinations, particularly shingles, are up to date. - Continue monitoring weight and maintain a healthy lifestyle through regular physical activity. Orders: Orders ECG 12 lead EKG Today R07.89 - Other chest pain XR chest 2V Today R07.89 - Other chest pain FL upper GI series Today R07.89 - Other chest pain, R13.10 - Dysphagia, unspecified Medications: New omeprazole 20 mg PO DAILY 30 caps 0RF R07.89 - Other chest pain
== END 2025-01-11 11:40 | disposition home or self-care (01) ==
LOC: HO.HMCH 10:51
PROVIDERS: PCP Internal Medicine; Visit Provider Internal Medicine
DX: E11.65 Type 2 diabetes mellitus with hyperglycemia (principal); I10 Essential (primary) hypertension; E78.00 Pure hypercholesterolemia, unspecified; K21.9 Gastro-esophageal reflux disease without esophagitis; R07.89 Other chest pain

== ENCOUNTER → 2025-01-11 10:50 | Outpatient (BNVA) | payer MEDICARE, SELFPAY | PROVIDERS: PCP Internal Medicine; Visit Provider Internal Medicine | DX: E11.65 Type 2 diabetes mellitus with hyperglycemia (principal); E78.00 Pure hypercholesterolemia, unspecified; I10 Essential (primary) hypertension; K21.9 Gastro-esophageal reflux disease without esophagitis; R07.89 Other chest pain | CPT/HCPCS: 99212 ==

== ENCOUNTER 2025-05-06 08:09 | Outpatient (REF) | payer MEDICARE, SELFPAY ==
--- NOTE | ~2025-05-06 | FL_ITS ---
EXAMINATION: XR FLUOROSCOPY UPPER GI WITH AIR CLINICAL INFORMATION: Dysphagia. COMPARISON: None available. TECHNIQUE: Routine upper GI air contrast study was performed in upright and lying position. FINDINGS: Lateral administration of thick barium and effervescent granules there is normal propagation bolus from the oral cavity through the pharynx, esophagus into stomach without obstruction, narrowing or stricture. No extrinsic compression seen. The gastroesophageal junction is widely patent. On placing patient supine and prone lying there is moderate gastric secretions. The mucosal pattern of stomach and the duodenum is normal. The course, caliber and peristalsis of the stomach and the duodenum is normal. A small sliding hiatal hernia is suspected. FLUOROSCOPY TIME: 2 minute 36 seconds DOSE AREA PRODUCT: [id number] uGy-m2 (microgray-meter squared) FL/FL upper GI w air IMPRESSION: A small sliding hiatal hernia is suspected . There is no gastroesophageal reflux. Electronically signed by: Jim Brantley MD 05/06/2025 11:31 AM EDT
--- NOTE | ~2025-05-06 | XR_ITS ---
EXAMINATION: XR CHEST CLINICAL INFORMATION: R07.89 - Other chest pain COMPARISON: None available. TECHNIQUE: PA and lateral views. FINDINGS: Pulmonary reticular pattern. Low lung volume. No consolidation, pleural effusion or pneumothorax. Cardiomediastinal silhouette size is normal. S-shaped curvature of the thoracolumbar spine with multilevel marginal osteophyte formation and decreased intervertebral disc height. Degenerative changes in the right shoulder. XR/XR chest 2V IMPRESSION: Chronic interstitial lung disease. Pulmonary fibrosis should be considered. Scoliosis and probable ankylosing spondylitis. Electronically signed by: Jerod Nelson MD 05/06/2025 08:35 AM EDT
--- OUTSIDE RECORDS SUMMARY | 2025-05-06 08:23 | XMS_ITS | Clinical Summary ---
Author Organization [employer] Address [address] [place] [address] Care Team Providers Care Front Clerk Name Role Phone Ting Iglesias MD Primary Care Provider Unava ilable Allergies No known active allergies Medications multivitamin capsule Take 1 capsule by mouth 1 (one) time each day. Active aspirin 81 mg chewable tablet Chew 81 mg 1 (one) time each day. Active Active Problems Problem Noted Date Diagnosed Date Herpes zoster 08/17/2019 Influenza vaccine administered 08/17/2019 Immunizations Immunization Administration Dates Next Due Influenza Split Preservative Free ID 05/14/2017 Influenza, Quad Single Dose PF 0.5mL 6+Mo 2015 Influenza, Unspecified 05/13/2018 Influenza, trivalent (IIV3), split virus (single-dose) PF 05/18/2019,05/03/2011 Influenza, trivalent, high-dose PF (Fluzone) Td, 5 Lf, Preservative Free, adsorbed 08/03/2002 Family History Medical History Relation Comments Heart disease Brother Hyperlipidemia Brother Hypertension Brother tumor in stomach Father Heart disease Maternal Grandfather pancreatic tumor Mother Heart disease Mother's Brother Diabetes Sister Hypertension Sister No Known Problems Son Relation Status Comments Brother Alive Father Maternal Grandfather Mother Mother's Brother Sister Alive Son Alive Social History Tobacco Use Types Packs/Day Years Used Date Smoking Tobacco: Never Smokeless Tobacco: Never Alcohol Use Standard Drinks/Week Comments Yes 0 (1 standard drink = 0.6 oz pur e alcohol) AUDIT-C Answer Date Recorded Q1: How often do you have a drink containing alc ohol? 2-4 times a month 07/24/2020 Average Number of Drinks Not on file 020 Frequency of Binge Drinking Not on file 07/05 Sex and Gender Information Value Date Recorded Sex Assigned at Not on file Legal Sex Male 12:29 AM MST Gender Identity Not on file Sexual Orientation Not on file Last Filed Vital Signs Vital Sign Reading Time Taken Comments Blood Pressure 128/86 08/17/2019 12:05 PM EST Pulse 75 07/24/2020 12:31 PM EST Temperature 36.7 C (98 F) 07/24/2020 12:31 PM EST Respiratory Rate 16 08/17/2019 11:46 AM EST Oxygen Saturation 97% 07/24/2020 12:31 PM EST Inhaled Oxygen Concentration - - Weight 97.5 kg (215 lb) 08/17/2019 11:45 AM EST Height 171.5 cm (5' 7.5 ) 08/17/2019 11:45 AM ES T Body Mass Index 33.18 08/17/2019 11:45 AM EST Plan of Treatment Health Maintenance Due Date Last Done Comments CT Colonography 1959 Cologuard 1959 Colonoscopy 1959 Colorectal Cancer Screening 1959 FOBT/FIT 1959 Hepatitis C Screening 1959 Sigmoidoscopy 1959 PHQ-9 Depression Screen 1971 GABE-7 Anxiety Screen 1977 DTaP,Tdap,and Td Vaccines (1 - Tdap) 08/04/2002 08/03/2002 Pneumococcal Vaccine: 50+ Ye ars (1 of 1 - PCV) 2009 Zoster Vaccines (1 of 2) 2009 Annual Preventive Exam 09/18/2021 1, 12/02/2018, 10/26/2018, Additional history exists COVID-19 Vaccine (1 - 2023-2 5 season) 2025 Influenza Vaccine (#1) 2025 4, 05/18/2019, 05/13/2018, Additional history exists RSV Vaccine (SCDM) (1 - 1-do se 75+ series) 2034 Insurance CIG Care Teams Front Clerk Relationship Specialty Start Date End Date Ting Iglesias MD PCP - General Internal Medicine 08/17/19
--- OUTSIDE RECORDS SUMMARY | 2025-05-06 08:23 | XMS_ITS ---
Author Name [facility] Organization Unknown Care Team Organization Name Specialty Phone Email Start Date End Da te [facility] Termed, PROVIDER Primary Care 06/11/202203/04
== END 2025-05-06 08:10 | disposition home or self-care (01) ==
LOC: HO.XRAY 08:09
PROVIDERS: PCP Internal Medicine; Visit Provider Internal Medicine
DX: R07.89 Other chest pain (principal); R13.10 Dysphagia, unspecified
CPT/HCPCS: 71046; 74246

== ENCOUNTER → 2025-05-06 08:11 | Outpatient (BNV) | payer MEDICARE, SELFPAY | PROVIDERS: PCP Internal Medicine; Visit Provider Radiology Diagnostic Radiology | DX: R13.10 Dysphagia, unspecified (principal); J84.9 Interstitial pulmonary disease, unspecified | CPT/HCPCS: 71046; 74246 ==

== ENCOUNTER 2025-05-19 08:38 | Outpatient (REF) | payer MEDICARE, SELFPAY ==
--- OUTSIDE RECORDS SUMMARY | 2025-05-19 09:09 | XMS_ITS | Clinical Summary ---
Author Organization [employer] Address [address] [place] [address] Care Team Providers Care Greens Tier Name Role Phone Ting Iglesias MD Primary [...] 75+ series) 2034 Insurance CIG Care Teams Greens Tier Relationship Specialty Start Date End Date Ting Iglesias MD PCP - General Internal Medicine 08/17/19
[2025-05-19 11:07] LABS: MANUAL DIFF FLAG NO
[2025-05-19 11:23] LABS: Hematocrit 43.7 % (42.0-52.0); Hemoglobin 14.3 g/dl (14.0-18.0); Imm Gran Abs Auto 0.02 X10*3/uL (0.00-0.03); Imm Gran Pct Auto 0.3 % (0.0-0.4); Lymphocytes Absolute Auto 1.8 X10*3/uL (1.2-4.9); Mean Corpuscular HGB Conc 32.7 g/dl (31.0-36.0); Mean Corpuscular Hemoglobin 28.0 pg (27.0-33.0); Mean Corpuscular Volume 85.7 fL (80.0-98.0); NRBC Abs Auto 0.000 X10*3/uL (0.0-0.012); NRBC Pct Auto 0.0 /100WBC (0.0-0.2); Platelet Count 214 X10*3/uL (160-400); Red Blood Count 5.10 X10*6/uL (4.60-5.80); White Blood Count 6.2 X10*3/uL (4.8-10.8)
[2025-05-19 12:03] LABS: Alanine Aminotransferase 19 U/L (0-40); Albumin Level 4.5 g/dL (3.5-5.0); Alkaline Phosphatase 60 U/L (39-117); Anion Gap 11 (12-20); Aspartate Amino Transferase 22 U/L (5-37); Blood Urea Nitrogen 17 mg/dL (9-16); Calcium 9.3 mg/dL (8.4-10.2); Carbon Dioxide 28 mmol/L (22-29); Chloride 107 mmol/L (96-108); Estimated Glomerular Filt Rate > 60; Potassium 4.5 mmol/L (3.3-5.1); Sodium 141 mmol/L (135-145); Total Protein 6.8 g/dL (6.5-8.0)
== END 2025-05-19 08:39 | disposition home or self-care (01) ==
LOC: HO.WFDLDS 08:38
PROVIDERS: Visit Provider Internal Medicine
DX: E11.65 Type 2 diabetes mellitus with hyperglycemia (principal)
CPT/HCPCS: 36415; 80053; 82570; 83036; 85025

== ENCOUNTER 2025-05-25 10:42 | Outpatient (AMB) | payer MEDICARE, SELFPAY ==
[2025-05-25 10:55] VITALS: BP 142/80; PULSE 83; TEMP 36.3; O2SAT 98; BMI 31.8
--- NOTE | 2025-05-25 10:55 | MHC.PC.OV ---
Vital Signs 05/25/25 10:55 05/25/25 11:15 Height 5 ft 6 in Weight 197 lb BMI 31.8 BP 142/80 H 144/80 H Blood Pressure Location Lt brachial Lt brachial Position Sitting Sitting Pulse 83 Pulse Source Pulse Oximeter Temp 97.3 F Temp Source Temporal Artery Scan Pulse Oximetry (%) 98 Oxygen Delivery Method Room Air Intake Visit Reasons: Annual Exam - see comments Allergies No Known Allergies Allergy (Verified 05/25/25 10:56) Medication List - Last Reconciled 05/25/25 by Allyn Pierre MD cholecalciferol (vitamin D3) 50 mcg PO DAILY lisinopril 5 mg PO DAILY metformin ER 500 mg PO DAILY multivitamin 1 tab PO DAILY omeprazole 20 mg PO DAILY rosuvastatin 5 mg PO DAILY turmeric mg PO Tobacco use date assessed: 05/25/25 Fall risk assessment: No Falls in past year Last assessed Fall Risk: 05/25/25 Dental Screening Dental Screen Date: 05/25/25 Did you have a dental visit in the last 12 months?: Yes Did you have a dental problem in the last 6 months where you did not have access to dental care?: No Was dental information given to patient?: Patient has dentist [facility] Medical History Impaired glucose tolerance Surgical History Hx of tonsillectomy Family History Maternal Grandfather Heart attack Maternal Uncle Heart attack Social History Housing: House Alcohol intake: current Comment: once a week 3 drink Patient Tobacco Use Status: Never used Tobacco Tobacco use type: Cigarette e-Cigarette/Vaping Use: Never Used Second Hand Smoke Exposure: No service: No Current occupational status: employed Cognitive needs: No Hearing needs: No Vision needs: Yes Questionnaire PHQ-9 Over the last 2 weeks, how often have you been bothered by any of the following problems? 1. Little interest or pleasure in doing things: not at all 2. Feeling down, depressed, or hopeless: not at all 3. Trouble falling or staying asleep, or sleeping too much: not at all 4. Feeling tired or having little energy: not at all 5. Poor appetite or overeating: not at all 6. Feeling bad about yourself - or that you are a failure or have let yourself or your family down: not at all 7. Trouble concentrating on things, such as reading the newspaper or watching television: not at all 8. Moving or speaking so slowly that other people could have noticed. Or the opposite - being so fidgety or restless that you have been moving around a lot more than usual: not at all 9. Thoughts that you would be better off or of hurting yourself in some way: not at all Total score: 0 Source: Developed by Drs. Fredrick Barlow, Ale Trammell, Tyler Mancilla and colleagues, with an educational devorah from [email or web address]. Thrive Questionnaire Date Thrive assessed: 05/25/25 I am a: Patient What is your living situation today?: I have a steady place to live Within the past 12 months, did the food you bought not last and you didn't have the money to get more?: Never true Within the past 12 months, did you worry whether your food would run out before you got money to buy more?: Never true Do you have trouble paying for medicines?: No Do you have trouble getting transportation to medical appointments?: No Do you have trouble paying your heating and electricity bill?: No Do you have trouble taking care of your child, family member or friend?: No Do you have trouble with day-to-day activities such as bathing, preparing meals, shopping, managing finances, etc.?: No Are you currently unemployed and looking for a job?: No Are you interested in more education?: No Please select the resources that you would like help with: None Currently or been in a relationship where the following occur: No concerns reported THRIVE Score: 0 AUDIT C Alcohol Use Questionnaire (AUDIT-C) 1. How often do you have a drink containing alcohol?: Monthly or less 2. How many drinks containing alcohol do you have on a typical day when you are drinking?: 1 or 2 3. How often do you have six or more drinks on one occasion?: Never Total Score: 1 GABE-7 AMB Questionnaire GABE-7 Date GABE - 7 assessed: 05/25/25 Feeling nervous, anxious, or on edge: 0 = Not at all Not being able to stop or control worryin = Not at all Worrying too much about different things: 0 = Not at all Trouble relaxin = Not at all Being so restless that it is hard to sit still: 0 = Not at all Becoming easily annoyed or irritable: 0 = Not at all Feeling afraid as if something awful might happen: 0 = Not at all Total GABE-7 score (0-4 normal; 5-9 mild; 10-14 moderate; 15-21 severe): 0 Source: Developed by Drs. Fredrick Barlow, Ale Trammell, Tyler Mancilla and colleagues, with an educational devorah from [email or web address]. Review of Systems Const Denies poor appetite and Denies weakness Eyes Denies no additional complaints ENT Reports Normal hearing present, Denies dizziness, Denies nasal congestion, Denies tinnitus and Denies sore throat Card Denies chest pain, Denies syncope, Denies rapid heart rate and Denies dyspnea Resp Denies cough and Denies dyspnea GI Denies change in stool character, Reports constipation, Denies diarrhea, Denies nausea and Denies vomiting Denies dysuria and Denies urinary frequency Neuro Reports Normal hearing present, Denies confusion, Denies dizziness, Denies syncope and Denies weakness Psych Denies confusion Physical exam (Primary Care) Vital Signs: Last Vital Signs Temp 97.3 F 05/25/25 10:55 Pulse 83 05/25/25 10:55 BP 144/80 H 05/25/25 11:15 Pulse Ox 98 05/25/25 10:55 Oxygen Delivery Method Room Air 05/25/25 10:55 BMI result Body Mass Index 31.8 Tobacco/Smoking Status: Tobacco use Status Tobacco use date assessed 05/25/25 05/25/25 10:58 Patient Tobacco Use Status Never used Tobacco 05/25/25 10:58 Tobacco use type Cigarette 05/25/25 10:58 e-Cigarette/Vaping Use Never Used 05/25/25 10:58 PHQ-9: PHQ-9 Score PHQ-9: Total score 0 05/25/25 11:13 Thrive Assessment: Date of Thrive Assessment Date Thrive assessed 05/25/25 05/25/25 10:58 Currently or been in a relationship where the following occur: No concerns reported Const General: No confusion Orientation/consciousness: No confusion HENMT Head: Yes normocephalic Ears: external ears normal and TM's normal bilaterally Face and sinus: Yes normal facial exam Mouth: moist mucous membranes Throat: Yes tonsils normal Eyes Conjunctivae: conjunctivae normal Pupils: Equal, round and reactive pupils present and Pupil accommodation reflex normal Direct Ophthalmoscopy: normal light reflex Neck Neck: No lymphadenopathy Thyroid: Thyroid normal Chest Chest palpation & inspection: normal inspection of the chest Resp Effort & Inspection: normal respiratory effort and no audible wheezes Auscultation: clear to auscultation bilaterally, no crackles, no wheezes and lung sounds not diminished Cardio Rate: regular rate Rhythm: regular rhythm Peripheral pulses: radial pulses present and dorsalis pedis present GI Palpation (GI): no masses Auscultation: normal bowel sounds and normoactive bowel sounds Rectal Exam - Male: Yes deferred Skin General skin exam: no rashes or lesions noted Rashes: no rashes Neuro General: No confusion Cranial nerves: Yes Equal, round and reactive pupils present and Yes Normal hearing present Cognition (Neuro): normal cognition Gait exam (Neuro): Normal gait present Motor exam (neuro): 5/5 motor strength present throughout Deep tendon reflexes (DTR's): Right brachioradialis reflex intensity grade: 2+, Left brachioradialis reflex intensity grade: 2+, Right patellar reflex intensity grade: 2+ and Left patellar reflex intensity grade: 2+ Extrem General: No edema Coding Level of Care Code Est Pt Prev Care >65y(13568) Diagnoses Annual physical exam Z00.00 Type 2 diabetes mellitus with hyperglycemia E11.65 Primary hypertension I10 Hypertension type: primary hypertension Hypercholesterolemia E78.00 Obesity (BMI 30.0-34.9) E66.9 Gastroesophageal reflux disease without esophagitis K21.9 Esophagitis presence: without esophagitis Primary osteoarthritis, right shoulder M19.011 Scoliosis M41.9 Assessment & Plan Assessment & Plan (1) Annual physical exam: Code(s): Z00.00 - Encounter for general adult medical examination without abnormal findings Category: Medical Plan: Patient is advised to eat healthy, keep well hydrated, keep active and have adequate sleep. (2) Type 2 diabetes mellitus with hyperglycemia: Comment: damaris Mims 2023 Code(s): E11.65 - Type 2 diabetes mellitus with hyperglycemia Category: Medical Plan: Decrease the amount of carbohydrate intake, pasta, bread, rice and potatoes are all sugar and that is aside from all the sweet stuff, remember that fruits are good but they are Sweet also. Patient on metformin 500 mg once a day hemoglobin A1c goal of less than 6.5. (3) Hypertension: Comment: Hypertension hypercholesterolemia impaired glucose tolerance diverticulosis chronic kidney disease stage 2 flu vaccine April 2023 COVID-19 vaccine 50 04/04/2023 DTaP December 2023 pneumococcal vaccine January 2024 colon cancer screening colonoscopy August 2011 , tonsillectomy 4 years old Code(s): I10 - Essential (primary) hypertension Category: Medical Qualifiers: Hypertension type: primary hypertension Qualified Code(s): I10 - Essential (primary) hypertension Plan: Continue with blood pressure medication. Decrease salt intake and exercise on lisinopril 5 mg once a day (4) Hypercholesterolemia: Code(s): E78.00 - Pure hypercholesterolemia, unspecified Category: Medical Plan: Avoid fried foods, chicken skin, eggs, butter margarine, pastries and meat. Be it pork or beef they have a lot of cholesterol LDL goal of less than 100 and triglyceride of less than 150 on rosuvastatin 5 mg once a day (5) Obesity (BMI 30.0-34.9): Code(s): E66.9 - Obesity, unspecified Category: Medical Plan: Diet and exercise (6) GERD (gastroesophageal reflux disease): Code(s): K21.9 - Gastro-esophageal reflux disease without esophagitis Category: Medical Qualifiers: Esophagitis presence: without esophagitis Qualified Code(s): K21.9 - Gastro-esophageal reflux disease without esophagitis Plan: Avoid the foods that causes that usually spicy foods, tomato products, juices, coffee, soda and foods that your sensitive to. After eating do not lie down, allow 3-4 hours before in lie down. And keep the head of bed above 30 degrees to avoid the acid from going up. (7) Primary osteoarthritis, right shoulder: Code(s): M19.011 - Primary osteoarthritis, right shoulder Category: Medical (8) Scoliosis: Code(s): M41.9 - Scoliosis, unspecified Category: Medical Plan History of Present Illness The patient is a 65-year-old male presenting for a physical examination and management of chronic conditions. The patient has a history of diabetes mellitus, hypertension, hypercholesterolemia, and gastroesophageal reflux disease (GERD). He has been on metformin 500 mg once daily for diabetes, with a recent hemoglobin A1c of 6.1, indicating good control. For hypertension, he is on lisinopril 5 mg daily, and his blood pressure readings have been stable. The patient reports a history of hypercholesterolemia managed with rosuvastatin 5 mg daily, achieving an LDL cholesterol level of 60 mg/dL. He has experienced a 9-pound weight loss, attributed to increased activity and dietary changes following snf. The patient has a sliding hiatal hernia identified on an upper GI series, with no current symptoms of reflux. He previously experienced symptoms in January, which resolved after a month of [id number] omeprazole use. A recent chest x-ray revealed chronic interstitial lung disease and pulmonary atherosclerosis, with a plan to involve a offset lithographic press setter for further evaluation. The patient denies any history of smoking or significant respiratory infections. The patient has scoliosis and degenerative joint disease of the right shoulder, causing limited range of motion but manageable pain. He has been advised on exercises to maintain mobility. Preventative care includes a colonoscopy in April 2023 showing internal hemorrhoids and diverticular disease, with recommendations to avoid constipation. He has received a flu shot, RSV shot, and shingles vaccination. Health Maintenance - Colonoscopy in April 2023: Internal hemorrhoids and diverticular disease, advised to avoid constipation - Vaccinations: Flu shot, RSV shot, shingles vaccination - Lifestyle: Increased activity and dietary changes post-snf, resulting in weight loss Social History - Employment: Retired, previously worked as a micro computer data processor - Substance Use: Denies smoking, rare alcohol consumption, no recreational drug use - Exercise: Increased physical activity post-snf - Diet: Reduced intake of sweets, contributing to weight loss Review of Systems - General: Denies fever, chills, or weight gain - Cardiovascular: Denies chest pain, palpitations, or syncope - Respiratory: Reports occasional dyspnea on exertion, denies cough or wheezing - Gastrointestinal: Denies nausea, vomiting, or abdominal pain - Musculoskeletal: Reports right shoulder pain with limited range of motion - Neurological: Reports tinnitus, denies dizziness or headaches Physical Exam General: Cooperative, healthy appearing, comfortable, no acute distress and well developed Orientation: Patient oriented x3 Limitations: No limitations Head: Normal to inspection Ears: Hearing grossly normal bilaterally, but patient reports ringing in the ears and low-level hearing loss Nose: Normal external nose present Face and sinus: Normal facial exam Eyes: Appearance normal, both eyes and all related structures Neck: Normal visual inspection and Yes full ROM Respiratory: Normal respiratory effort and able to speak in complete sentences. Clear to auscultation bilaterally, but chest x-ray reveals chronic interstitial lung disease and pulmonary fibrosis should be considered Cardiovascular: Regular rate and rhythm. Normal S1 and S2 GI: Normal to inspection. Soft to palpation and nontender. Upper GI series shows small sliding hiatal hernia, no reflux Skin: No rashes or lesions noted Neuro: Patient oriented x3 Extremities: Normal to inspection, but patient reports pain and limited motion in the right shoulder due to arthritis. Scoliosis noted. Results - Labs: Normal blood count, electrolytes, renal function (creatinine 1.05), blood sugar 123, hemoglobin A1c 6.1, liver function, cholesterol (LDL 60), PSA, B12, folic acid, thyroid all within normal limits - Imaging: Chest x-ray showing chronic interstitial lung disease and pulmonary atherosclerosis - Procedures: Colonoscopy in April 2023 showing internal hemorrhoids and diverticular disease Plan Patient was informed and verbally consented to the use of an ambient scribe for clinic note documentation during this visit. 1. Diabetes Mellitus The patient is currently on metformin 500 mg once daily with a target hemoglobin A1c of less than 6.5%. His recent A1c was 6.1, indicating good glycemic control. 2. Hypertension The patient is on lisinopril 5 mg once daily, with blood pressure monitoring advised at home. Recent clinic readings were slightly elevated, but home readings are typically lower. 3. Hypercholesterolemia The patient is on rosuvastatin 5 mg daily, with an LDL goal of less than 100 mg/dL. His recent LDL was 60 mg/dL, indicating effective management. 4. Gastroesophageal Reflux Disease (Gerd) The patient previously used [id number] omeprazole for one month, which resolved his symptoms. He is advised to avoid large meals and lying down immediately after eating to prevent reflux. 5. Sliding Hiatal Hernia The patient has a small sliding hiatal hernia with no current symptoms of reflux. Conservative management includes dietary modifications and avoiding lying down after meals. 6. Chronic Interstitial Lung Disease A chest x-ray revealed chronic interstitial lung disease, and a offset lithographic press setter referral is planned for further evaluation. 7. Pulmonary Atherosclerosis Pulmonary atherosclerosis was noted on chest x-ray, and further evaluation by a offset lithographic press setter is advised. 8. Scoliosis The patient has scoliosis with no reported back pain. 9. Internal Hemorrhoids Internal hemorrhoids were identified during a colonoscopy, with advice to avoid constipation. 10. Diverticular Disease Diverticular disease was noted on colonoscopy, with recommendations to maintain regular bowel movements. 11. Degenerative Joint Disease Of The Right Shoulder The patient experiences limited range of motion in the right shoulder due to degenerative joint disease. Exercises to improve mobility have been recommended. Discussion Notes During the visit, I discussed the management of diabetes, hypertension, and hypercholesterolemia with the patient, emphasizing the importance of medication adherence and lifestyle modifications. We reviewed the recent imaging findings, including the chest x-ray showing chronic interstitial lung disease and pulmonary atherosclerosis, and I recommended a referral to a offset lithographic press setter for further evaluation. I advised the patient on dietary modifications to manage his sliding hiatal hernia and GERD symptoms, and we discussed the importance of regular follow-up and monitoring of his chronic conditions. Patient Instructions - Continue taking metformin, lisinopril, and rosuvastatin as prescribed. - Monitor blood pressure at home and report any significant changes. - Follow dietary recommendations to manage GERD and hiatal hernia symptoms. - Schedule a follow-up appointment with a offset lithographic press setter for lung evaluation. - Maintain regular physical activity and a healthy diet to support weight management. - Ensure vaccinations are up to date, including the shingles vaccine. Orders: Orders Complete Blood Count Auto Diff 6 Months E11. - Type 2 diabetes mellitus with hyperglycemia Comprehensive Met. Panel 6 Months . - Type 2 diabetes mellitus with hyperglycemia Lipid Panel 6 Months E11. - Type 2 diabetes mellitus with hyperglycemia, E78.00 - Pure hypercholesterolemia, unspecified Thyroid Stimulating Hormone 6 Months E11. - Type 2 diabetes mellitus with hyperglycemia Prostate Specific Antigen Scr 6 Months E11. - Type 2 diabetes mellitus with hyperglycemia Erythrocyte Sedimentation Rate 6 Months E11. - Type 2 diabetes mellitus with hyperglycemia Hemoglobin A1c 6 Months E11. - Type 2 diabetes mellitus with hyperglycemia Free T4 (Free Thyroxine) 6 Months E11. - Type 2 diabetes mellitus with hyperglycemia Microalbumin, Random (w Creat) 6 Months . - Type 2 diabetes mellitus with hyperglycemia Creatinine Urine 6 Months . - Type 2 diabetes mellitus with hyperglycemia Vitamin B12 and Folate 6 Months E11. - Type 2 diabetes mellitus with hyperglycemia UA CC w/rflx Micro + Cult 6 Months . - Type 2 diabetes mellitus with hyperglycemia, R30.0 - Dysuria C Reactive Protein 6 Months E11.65 - Type 2 diabetes mellitus with hyperglycemia Referrals Pulmonology Referral J84.9 - Interstitial pulmonary disease, unspecified
[2025-05-25 11:15] VITALS: BP 144/80
--- OUTSIDE RECORDS SUMMARY | 2025-05-25 13:43 | XMS_ITS | Clinical Summary ---
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 Role Phone Ting Iglesias MD Primary [...] 1960 Hepatitis C Screening 1960 Sigmoidoscopy 1960 MMR Vaccines (1 of 1 - Standard series) 01/21/1960 PHQ-9 Depression Screen 1971 GABE-7 Anxiety Screen 1977 DTaP,Tdap,and Td Vaccines (1 - Tdap) 08/04/2002 08/03/2002 Pneumococcal Vaccine: 50+ Years (1 of 1 - PCV) 2009 Zoster Vaccines (1 of 2) 2009 Annual Preventive Exam 09/18/2021 1, 12/02/2018, 10/26/2018, Additional history exists COVID-19 Vaccine (1 - 2023- season) 2025 Influenza Vaccine (#1) 2025 4, 05/18/2019, 05/13/2018, Additional history exists RSV Vaccine (SCDM) (1 - 1-dose 75+ series) 2034 Hepatitis B Vaccines Aged Out No long er eligible based on patient's age to complete this topic Insurance [employer] Care Teams 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
== END 2025-05-25 11:47 | disposition home or self-care (01) ==
LOC: HO.HMCH 10:43
PROVIDERS: PCP Internal Medicine; Visit Provider Internal Medicine
DX: Z00.00 Encounter for general adult medical examination without abnormal findings (principal); E11.65 Type 2 diabetes mellitus with hyperglycemia; I10 Essential (primary) hypertension; E78.00 Pure hypercholesterolemia, unspecified; E66.9 Obesity, unspecified; K21.9 Gastro-esophageal reflux disease without esophagitis; M19.011 Primary osteoarthritis, right shoulder; M41.9 Scoliosis, unspecified

== ENCOUNTER → 2025-05-25 10:42 | Outpatient (BNVA) | payer MEDICARE, SELFPAY | PROVIDERS: PCP Internal Medicine; Visit Provider Internal Medicine | DX: Z00.00 Encounter for general adult medical examination without abnormal findings (principal); I27.0 Primary pulmonary hypertension; E11.65 Type 2 diabetes mellitus with hyperglycemia; E78.00 Pure hypercholesterolemia, unspecified; E66.9 Obesity, unspecified; K21.9 Gastro-esophageal reflux disease without esophagitis; M19.011 Primary osteoarthritis, right shoulder; M41.9 Scoliosis, unspecified; K44.9 Diaphragmatic hernia without obstruction or gangrene; J84.9 Interstitial pulmonary disease, unspecified; K64.8 Other hemorrhoids | CPT/HCPCS: 96127; 99397 ==

== ENCOUNTER 2025-08-02 14:20 | Outpatient (AMB) | payer MEDICARE, SELFPAY ==
[2025-08-02 14:22] VITALS: BP 128/74; PULSE 88; O2SAT 98; BMI 32.4
--- NOTE | 2025-08-02 14:22 | A.OFFVIS_ITS ---
Vital Signs 08/02/25 14:22 Height 5 ft 6 in Weight 201 lb BMI 32.4 BP 128/74 Blood Pressure Location Rt brachial Position Sitting Pulse 88 Pulse Source Pulse Oximeter Pulse Oximetry (%) 98 Oxygen Delivery Method Room Air Intake Visit Reasons: Interstitial pulmonary disease Allergies No Known Allergies Allergy (Verified 08/02/25 14:25) HPI Comments Details: Alexey is a pleasant 65 year old male, never smoker, with underlying GERD, HTN and DMII. He was referred by PCP for pulmonary evaluation. He was referred by PCP for pulmonology consultation after a chest X-ray, performed for indigestion, revealed a reticular pattern suggestive of ILD/fibrosis. A barium swallow study also identified a small hiatal hernia. He reports a persistent chest cold for the past three weeks with a productive cough of yellowish-green sputum, associated with chest congestion and fatigue. He has been taking Mucinex with some relief. He states this type of lingering chest cold is unusual for him, as his colds are typically located in his head and resolve more quickly. He denies any fever or other symptoms of COVID-19 or flu with this illness. The patient also notes new onset dyspnea with moderate exertion. Past medical history is notable for two episodes of mild COVID-19 infection, which did not require hospitalization. He denies a history of asthma, recurrent pneumonia, autoimmune conditions, or significant environmental allergies. 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 Family history is negative for respiratory conditions. Social history is negative for current smoking, though he tried it as a child without continuing. 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 Pulmonology History - Cough: Reports a productive cough with yellowish-green sputum for the past 3 weeks. - Dyspnea: Reports shortness of breath with moderate exertion. - Wheezing: Denies wheezing. - Past Infections: History of two mild COVID-19 infections, not requiring hospitalization. - Past Diagnoses: Denies a history of asthma or recurrent pneumonia. - Tobacco Use: Former smoker; reports trying it as a child but never continued. - Exposures: Denies significant secondhand smoke, occupational, or environmental exposures. [facility]LY [facility] Medical History Impaired glucose tolerance Surgical History Hx of tonsillectomy Family History Maternal Grandfather Heart attack Maternal Uncle Heart attack Social History Housing: House Alcohol intake: current Comment: once a week 3 drink Patient Tobacco Use Status: Never used Tobacco Tobacco use type: Cigarette e-Cigarette/Vaping Use: Never Used Second Hand Smoke Exposure: No service: No Current occupational status: employed Cognitive needs: No Hearing needs: No Vision needs: Yes Review of Systems Narrative Review of Systems - Constitutional: Reports fatigue. - Denies fever and night sweats. - Respiratory: Reports a productive cough with yellowish-green sputum for three weeks, chest congestion, and dyspnea with moderate exertion. - Denies wheezing and chest tightness. - Gastrointestinal: Reports a history of indigestion. - Musculoskeletal: Reports joint pain in his shoulder and knees. - Denies pain in fingers or toes. - Skin: Denies rashes or skin thickening. - HENT: Denies dry eyes and dry mouth. ENT Reports Normal hearing present Neuro Reports Normal hearing present Physical Exam Exam Exam: Vital Signs: Last Vital Signs Pulse 88 08/02/25 14:22 BP 128/74 08/02/25 14:22 Pulse Ox 98 08/02/25 14:22 Oxygen Delivery Method Room Air 08/02/25 14:22 BMI result Body Mass Index 32.4 Const General: cooperative, healthy appearing, comfortable, no acute distress, well developed and alert Orientation/consciousness: patient oriented x3 Limitations: no limitations HEENT Head: Yes normal to inspection, Yes normocephalic and Yes atraumatic Ears: hearing grossly normal bilaterally and external ears normal Eyes General: appearance normal, both eyes and all related structures Eyelids: Yes eyelids normal Sclerae: sclerae normal EOM: EOMs intact bilaterally Neck Neck: Yes normal visual inspection and Yes no lymphadenopathy Lymphatic: no lymphadenopathy noted Chest Chest palpation & inspection: normal inspection of the chest Resp Effort & Inspection: normal respiratory effort, able to speak in complete sentences, no audible wheezes, Actively coughing Quality: wet, no stridor, not tachypneic, no tripod positioning and no use of accessory muscles Auscultation: crackles (coarse) on the left in the lower lung bar Cardio Jugular venous distension: no JVD Rate: regular rate Rhythm: regular rhythm Skin Other: warm, dry General skin exam: no rashes or lesions noted Neuro General: patient oriented x3 Cranial nerves: Yes Normal hearing present Cognition (Neuro): normal cognition Gait exam (Neuro): Normal gait present Extrem General: Yes normal to inspection, Yes capillary refill normal, Yes no clubbing, cyanosis or edema and Yes no pedal edema Psych Appearance: grossly normal and well kempt Speech and movement: Normal speech and movement present and Clear speech present Affect: normal affect Attitude: cooperative Thought process: Normal thought process present Thought content: Normal thought content present Insight: Good insight present (Psych) Judgement: Good judgement present (Psych) Results Reviewed Results Reviewed: [address] [address] XRay Report Signed Patient: Alexey Loza MR#: [id number] : 1960 Acct:[id number] Age/Sex: 65 / M ADM Date: 05/06/25 Loc: [facility] Attending Dr: Allyn Pierre MD Ordering Physician: Allyn Pierre MD Date of Service: 05/06/25 Procedure(s): XR chest 2V Accession Number(s): [id number] cc: Allyn Pierre MD~ Reason for Exam: R07.89 - Other chest pain EXAMINATION: XR CHEST CLINICAL INFORMATION: R07.89 - Other chest pain COMPARISON: None available. TECHNIQUE: PA and lateral views. FINDINGS: Pulmonary reticular pattern. Low lung volume. No consolidation, pleural effusion or pneumothorax. Cardiomediastinal silhouette size is normal. S-shaped curvature of the thoracolumbar spine with multilevel marginal osteophyte formation and decreased intervertebral disc height. Degenerative changes in the right shoulder. XR/XR chest 2V IMPRESSION: Chronic interstitial lung disease. Pulmonary fibrosis should be considered. Scoliosis and probable ankylosing spondylitis. Electronically signed by: Jerod Nelson MD 05/06/2025 08:35 AM EDT Dictated By: Jerod Niño MD Signed By: <Electronically signed by Jerod Swanson MD in OV> 05/06/2535 DD/ 4 TD/TT: 05/06/25819 Log Feeder: Assessment & Plan Assessment & Plan (1) Bronchopneumonia: Code(s): J18.0 - Bronchopneumonia, unspecified organism Category: Medical (2) Abnormal chest xray: Code(s): R93.89 - Abnormal findings on diagnostic imaging of other specified body structures Category: Medical (3) Dyspnea on exertion: Code(s): R06.09 - Other forms of dyspnea Category: Medical Plan Reviewed prior CXR which demonstrated a pulmonary reticular pattern, concerning for possible ILD, including fibrosis. The differential diagnosis includes interstitial lung disease, which can result from autoimmune conditions, environmental exposures, or be idiopathic. Further evaluation with a chest CT scan and pulmonary function tests (PFTs) is warranted to better characterize the findings. Orders will be placed for a chest CT scan and full PFTs. The central scheduling office will contact the patient to arrange these tests. The patient has a 3-week history of a productive cough with yellowish-green sputum and chest congestion that has been slow to resolve. Physical exam is notable for a harsh cough and crackles in the left lower lobe, which are suspicious for pneumonia. Given the prolonged duration of symptoms, a bacterial component is suspected. Prescribed azithromycin 500 mg, two tablets on day one, followed by one tablet daily for four days. The patient was advised to continue Mucinex daily while on antibiotics and to increase fluid intake. An order for a chest X-ray has been placed; the patient was instructed to obtain the X-ray if symptoms do not improve by Friday. He was instructed to call the office if symptoms are not better by Friday or if they recur after completing the antibiotic course. A follow-up visit will be scheduled in approximately 10-12 weeks to review the results. All questions were answered and patient is in agreement of plan. Patient Instructions - You have been prescribed azithromycin (Z-Ryder). - Take two pills on the first day, then one pill each day for the next four days. - Continue taking Mucinex every day while you are on the antibiotic. - Drink plenty of fluids to help the Mucinex work better. - You will receive a phone call to schedule a chest CT scan and a breathing test (pulmonary function test). - If your cough is not getting better by Friday, please call our office. - If you are not feeling better by Friday, go to [facility] for a chest X- ray. - You do not need the X-ray if you are feeling better. - Call our office if your symptoms get better with the antibiotic but then come back after you finish the medication. - Our direct office number is located at the top of the paperwork you were given. Patient was informed and verbally consented to the use of an ambient scribe for clinic note documentation during this visit. Orders: Orders CT chest wo IV con Today R93.89 - Abnormal findings on diagnostic imaging of other specified body structures XR chest 2V Today R05.9 - Cough, unspecified PFT pulmonary function test Today R06.09 - Other forms of dyspnea Medications: New azithromycin For 250 mg dose pack: take 500 mg today (day 1), then 250 mg for 4 days (days 2-5) PO 6 tabs 0RF Coding Level of Care Code New Pt Level 4 (72467) Diagnoses Bronchopneumonia J18.0 Abnormal chest xray R93.89 Dyspnea on exertion R06.09
--- OUTSIDE RECORDS SUMMARY | 2025-08-02 18:04 | XMS_ITS | Clinical Summary ---
Author Organization [employer] Address [address] [place] [address] Care Team Providers Care Technical Programs Manager Name Role Phone Ting Iglesias MD Primary [...] complete this topic Insurance [employer] Care Teams Technical Programs Manager Relationship Specialty Start Date End Date Ting Iglesias MD PCP - General Internal Medicine 08/17/19
== END 2025-08-02 14:52 | disposition home or self-care (01) ==
LOC: HO.HPSW 14:20
PROVIDERS: PCP Internal Medicine; Referring Provider Internal Medicine; Visit Provider Nurse Practitioner Family
DX: J18.0 Bronchopneumonia, unspecified organism (principal); R93.89 Abnormal findings on diagnostic imaging of other specified body structures; R06.09 Other forms of dyspnea
CPT/HCPCS: 99204

== ENCOUNTER → 2025-08-02 14:20 | Outpatient (BNVA) | payer MEDICARE, SELFPAY | PROVIDERS: PCP Internal Medicine; Referring Provider Internal Medicine; Visit Provider Nurse Practitioner Family | DX: J18.0 Bronchopneumonia, unspecified organism (principal); J84.10 Pulmonary fibrosis, unspecified; R93.89 Abnormal findings on diagnostic imaging of other specified body structures; R06.09 Other forms of dyspnea; K44.9 Diaphragmatic hernia without obstruction or gangrene | CPT/HCPCS: 99202 ==